=== PATIENT | female | born 1995 | race Caucasian/White ===

== ENCOUNTER 2020-09-04 12:59 | Emergency (ER) | payer OTHER ==
--- NOTE | 2020-09-04 14:11 | ER Document Report ---
ED Medical Screen (RME) - General Chief Complaint: Chemical Exposure in Eye Stated Complaint: CHEMICAL EXPOSURE IN EYE Time Seen by Provider: 09/04/20 14:04 - HPI Notes: Patient is a 25 y/o female who presents for chemical exposure to her eyes. Patient states just prior to arrival she was mixing water and bleach when she dropped the container and is splashed up into her eyes. She reports irritation to both eyes but states left is greater than right. She immediately rinsed her eyes for 15 minutes and called poison control. They advised her to come into the emergency department as she continues to have irritation after rinsing her eyes out. She rinsed her eyes another 5 to 10 minutes here in the emergency department. She denies any other complaints or injuries at this time. - Related Data Allergies/Adverse Reactions: No Known Allergies Allergy (Verified 09/04/20 14:00) Past Medical History - Social History Frequency of alcohol use: None Drug Abuse: Marijuana Physical Exam - Vital signs Vitals: Temp Pulse Resp BP Pulse Ox 98.6 F 77 16 125/78 100 09/04/20 13:25 09/04/20 13:25 09/04/20 13:25 09/04/20 13:25 09/04/20 13:25 - HEENT Conjunctiva: Injected Eyelashes: Normal Pupils: PERRL Course - Re-evaluation Re-evalutation: I have greeted and performed a rapid initial assessment of this patient. A comprehensive ED assessment and evaluation of the patient, analysis of test results and completion of medical decision making process will be conducted by an additional ED providers. - Vital Signs Vital signs: Temp Pulse Resp BP Pulse Ox 98.6 F 77 16 125/78 100 09/04/20 13:25 09/04/20 13:25 09/04/20 13:25 09/04/20 13:25 09/04/20 13:25
--- NOTE | 2020-09-04 15:29 | ER Document Report ---
ED General - General Chief Complaint: Chemical Exposure in Eye Stated Complaint: CHEMICAL EXPOSURE IN EYE Time Seen by Provider: 09/04/20 14:04 Primary Care Provider: MELISSA HUDDLESTON DO [ACTIVE STAFF] - Follow up as needed DENICE JENNINGS MD [ACTIVE STAFF] - Follow up as needed - HPI Notes: Patient is a 25-year-old female who presents to the emergency department for evaluation after getting bleach water in her eyes. The patient states she was trying to style a pair of pants for a friend. She had bleach in a spray bottle. She states it was diluted to one third or one fourth bleach. She states that the spray came back and got into both eyes, left greater than right. She immediately rinsed her eyes for about 10 to 15 minutes. She stated she had some staining in her left eye, and it looked like she was "looking through a set of windows years." She contacted poison control. They told her that if her pain continued after rinsing the she should be seen. She did have pain and redness, so she presented to the ED. She was sent to the eyewash station for about 15 minutes after arrival to the emergency department. The patient states that this point that she has no symptoms whatsoever. - Related Data Allergies/Adverse Reactions: No Known Allergies Allergy (Verified 09/04/20 14:00) Home Medications: BuSpar, Effexor, Seroquel, cetirizine Past Medical History - General Information source: Patient - Social History Smoking Status: Never Smoker Frequency of alcohol use: None Drug Abuse: Marijuana Family History: Hypertension Psychiatric Medical History: Reports: Hx Anxiety, Hx Depression Review of Systems - Review of Systems Constitutional: No symptoms reported EENT: See HPI Cardiovascular: No symptoms reported Respiratory: No symptoms reported Gastrointestinal: No symptoms reported Genitourinary: No symptoms reported Musculoskeletal: No symptoms reported Skin: No symptoms reported Neurological/Psychological: No symptoms reported Physical Exam - Vital signs Vitals: Temp Pulse Resp BP Pulse Ox 98.6 F 77 16 125/78 100 09/04/20 13:25 09/04/20 13:25 09/04/20 13:25 09/04/20 13:25 09/04/20 13:25 - Notes Notes: There is a very pleasant 25-year-old female who appears her stated age, in no acute distress. Head is normocephalic and atraumatic. Heart regular rate and rhythm, lungs are clear to auscultation bilaterally. - HEENT Eyes: No: Pale conjunctiva, Periorbital edema, Scleral icterus Conjunctiva: Injected - Mild injection of the left bulbar conjunctiva Cornea: Corneal abrasion - Very tiny corneal abrasion noted at 6:00 on the left eye, at the border of the iris and the sclera Extraocular movements intact: Yes Eyelashes: Normal Pupils: PERRL Anterior chamber: Normal Nerve palsy: No Visual bentley normal: Yes Course - Re-evaluation Re-evalutation: 09/04/20 16:14 Patient presents to the emergency department for evaluation of a diluted bleach solution getting in her eye. She has a very small corneal abrasion, in fact I suspect that this was more from rubbing her eyes than the actual caustic agent. She has no signs of perforation. She has no ongoing pain. She has a normal visual acuity per nursing. I do not see any significant ulceration. I will give her the name of some local board of directors. I will start her on antibiotic eyedrops. She is to follow-up with ophthalmology in the next 1 to 2 days, return to the ED with worsening. She does wear corrective lenses. I told her that she is not to wear her contact lenses for at least the next week or until cleared by ophthalmology. 09/04/20 16:21 - Vital Signs Vital signs: Temp Pulse Resp BP Pulse Ox 98.6 F 77 16 125/78 100 09/04/20 13:25 09/04/20 13:25 09/04/20 13:25 09/04/20 13:25 09/04/20 13:25 - Laboratory Results Critical Laboratory Results Reviewed: No Critical Results - Radiology Results Critical Radiology Results Reviewed: No Critical Results Discharge - Discharge Clinical Impression: Accidental exposure to bleach Corneal abrasion, left Qualifiers: Encounter type: initial encounter Qualified Code(s): S05.02XA - Injury of conjunctiva and corneal abrasion without foreign body, left eye, initial encounter Condition: Stable Disposition: HOME, SELF-CARE Instructions: Corneal Abrasion ([facility]) Additional Instructions: Your exam today yielded a small abrasion, no serious signs from bleach exposure. Please use eyedrops, 1 to 2 drops in affected eye 3 times a day. Follow-up with ophthalmology this week. If you develop increased pain, redness, drainage, fevers, difficulty seeing, please return immediately to the emergency department for evaluation. Please do not use your contact lenses until symptom-free, off of medication, and cleared by ophthalmology. Referrals: DENICE JENNINGS MD [ACTIVE STAFF] - Follow up as needed MELISSA HUDDLESTON DO [ACTIVE STAFF] - Follow up as needed
[2020-09-04] MEDS ORDERED: BESIFLOXACIN HCL 0.6% OPH SUSP 5 ML BOTTLE OS ONE (16:16)
[2020-09-04 18:21] VITALS: BP 133/88
== END 2020-09-04 16:58 | disposition home or self-care (01) ==
LOC: ER 12:59
DX: Z77.098 Contact with and (suspected) exposure to other hazardous, chiefly nonmedicinal, chemicals (principal); S05.02XA Injury of conjunctiva and corneal abrasion without foreign body, left eye, initial encounter; X58.XXXA Exposure to other specified factors, initial encounter; F41.9 Anxiety disorder, unspecified; F32.9 Major depressive disorder, single episode, unspecified; Z79.899 Other long term (current) drug therapy
CPT/HCPCS: 99283